=== PATIENT | female | born 1970 | race Caucasian/White ===

== ENCOUNTER → 2016-11-21 | Outpatient (CLI) | payer BC | END | disposition home or self-care (01) | LOC: EDBD → MW.CHIM 11-16 14:42 → MW.RT 08:24 | PROVIDERS: ATTEND Internal Medicine | DX: R07.9 Chest pain, unspecified (principal) | CPT/HCPCS: 93005 ==

== ENCOUNTER → 2016-11-28 | Outpatient (CLI) | payer BC ==
--- NOTE | 2016-11-29 13:03 | ECHO ---
EXAM DATE: 11/28/16 PATIENT'S AGE: 45 The echocardiogram report can be seen in this patient's EMR (Electronic Medical Record) in the Reports section. JUANA
== END ==
LOC: EDBD → MW.US 09:30
PROVIDERS: ATTEND Internal Medicine
DX: R07.9 Chest pain, unspecified (principal)
CPT/HCPCS: 93306

== ENCOUNTER → 2016-11-29 | Outpatient (CLI) | payer BC ==
--- NOTE | 2016-11-30 10:09 | MY ---
EXAMINATION: Bilateral digital mammography utilizing CAD. HISTORY: Screening exam. Comparison is made to previous studies dated 03/24/2015, 01/15/2012, 12/24/19 12. FINDINGS: Bilateral scattered fibroglandular densities. No suspicious calcifications, masses or architectural distortions. No pathologic appearing lymph nodes, no abnormal skin thickening or nipple inversion. CAD highlighted regions appear normal at this time. IMPRESSION: BI-RADS category I - negative mammogram. Continued screening according to ACR-ACS guidelines sugg estemariah. THE FALSE-NEGATIVE RATE OF MAMMOGRAM IS APPROXIMATELY 10%. MANAGEMENT OF A PALPABLE ABNORMALITY MUST BE BASED UPON CLINICAL GROUNDS. SENSITIVITY FOR DETECTION OF ABNORMALITIES IN DENSE BREASTS IS LOW. NOTE: A letter will be sent to the patient regarding findings. [facility] -- CAMILA Montes [phone] - FAX [phone]
== END ==
LOC: EDBD → MW.MAM 13:42
PROVIDERS: ATTEND Obstetrics & Gynecology
DX: Z12.31 Encounter for screening mammogram for malignant neoplasm of breast (principal)
CPT/HCPCS: G0202; G0202-26

== ENCOUNTER 2017-01-02 08:22 | Day surgery (SDC) | payer BC, SELFPAY ==
[~2017-01-02 08:22] MED LIST: Bupivacaine 0.25%/EPINEPHrine 1:200,000 10 ML SDV ONE; Lactated Ringers 1,000 ML IV SCH
[2017-01-02] MEDS ORDERED: Rocuronium 10 MG/ML 10 ML Syringe ONE ×2 (08:24→11:28)
[2017-01-02] MEDS ORDERED: Neostigmine Methylsulfate 1 MG/ML 5 ML Syringe ONE (08:24)
[2017-01-02] MEDS ORDERED: Lidocaine 2% 5 ML SDV ONE (08:24)
[2017-01-02] MEDS ORDERED: Ondansetron 4 MG/2 ML SDV ONE (08:24)
[2017-01-02] MEDS ORDERED: Propofol 200 MG/20 ML SDV ONE (08:25)
[2017-01-02] MEDS ORDERED: Midazolam 1 MG/ML 2 ML SDV ONE (08:25)
[2017-01-02] MEDS ORDERED: fentaNYL 250 MCG/5 ML SDV ONE (08:25)
[2017-01-02] MEDS ORDERED: fentaNYL 100 MCG/2 ML SDV IVPUSH PRN (08:28)
[2017-01-02] MEDS ORDERED: Acetaminophen/HYDROcodone 325-5 MG Tab PO PRN (09:00)
[2017-01-02] MEDS ORDERED: Clindamycin Phosphate in D5W 600 MG in Premix Bag 1 BAG IV ONE ×4 (09:00→11:30)
[2017-01-02] MEDS ORDERED: Bupivacaine 0.25%/EPINEPHrine 1:200,000 10 ML SDV INJECT ONE (09:00)
[2017-01-02] MEDS ORDERED: Oxymetazoline 0.05% Nasal Spray 15 ML Bottle ONE (09:19)
[2017-01-02] MEDS ORDERED: Scopolamine 1.5 MG Transdermal Patch TRDERM PRN (09:23)
--- NOTE | 2017-01-02 09:24 | PCM.PREANE ---
Preanesthetic Assessment - Anesthesia/Transfusion/Family Hx Anesthesia History: Prior Anesthesia Reaction Type of Anesthesia Reaction: Excessive Nausea/Vomiting Family History of Anesthesia Reaction: No Transfusion History: No Prior Transfusion(s) - Review of Systems General: No Symptoms Pulmonary: No Symptoms Cardiovascular: No Symptoms Gastrointestinal: No symptoms Neurological: No Symptoms Other: Reports: None - Physical Assessment NPO Status Date: 01/01/17 O2 Sat by Pulse Oximetry: 98 Respiratory Rate: 16 Vital Signs: Last Vital Signs Temp 36.6 C 01/02/17 08:27 Pulse 70 01/02/17 08:27 Resp 16 01/02/17 08:27 BP 133/73 01/02/17 08:27 Pulse Ox 98 01/02/17 08:27 Height: 1.65 m Weight: 68.039 kg ASA Class: 2 Mental Status: Alert & Oriented x3 Airway Class: Mallampati = 1 Dentition: Reports: Normal Dentition ROM/Head Extension: Full Lungs: Clear to auscultation, Normal respiratory effort Cardiovascular: Regular Rate, Regular Rhythm - Lab Values: Laboratory Last Values Urine HCG, Qual NEGATIVE (NEGATIVE) 01/02/17 08:22 - Allergies Allergies/Adverse Reactions: Allergies Allergy/AdvReac Type Severity Reaction Status Date / Time diclofenac [Diclofenac] Allergy Cannot Verified 02/16/14 15:09 Remember - Anesthesia Plan Pre-Op Medication Ordered: Other (transderm scop) - Acknowledgements Anesthesia Type Planned: General Anesthesia Pt an Appropriate Candidate for the Planned Anesthesia: Yes Alternatives and Risks of Anesthesia Discussed w Pt/Guardian: Yes Pt/Guardian Understands and Agrees with Anesthesia Plan: Yes PreAnesthesia Questionnaire Cardiovascular History: Reports: Heart Murmur Gastrointestinal History: Reports: Other (See Below) Other Gastrointestinal History: occasional heartburn Genitourinary History: Reports: UTI, Recurrent Neurological History: Reports: Migraines Endocrine/Metabolic History: Reports: None Oncologic (Cancer) History: Reports: Ovarian, Other (See Below) Other Oncologic History: states "did not need chemo" "got it all with hysterectomy" Dermatologic History: Reports: Eczema Other Dermatologic History: eczema to face - Past Surgical History Head Surgeries/Procedures: Reports: None Female Surgical History: Reports: Hysterectomy, Tubal Ligation Other Female Surgeries/Procedures: complete abd hysterectomy for ovarian cancer Musculoskeletal Surgical History: Reports: Arthroscopic Knee - SUBSTANCE USE Smoking Status *Q: Never Smoker Recreational Drug Use History: No - HOME MEDS Home Medications: Home Meds Aspirin [[place] Aspirin] 1 tab PO DAILY 12/31/16 [History] Estradiol [Vagifem] 1 tab VAG ASDIRECTED 12/31/16 [History] Multivitamin [Multivitamins] 1 tab PO DAILY 12/31/16 [History] Nitrofurantoin [place]/Macrocryst [Macrobid] 1 tab PO BID 12/31/16 [History] - CURRENT (IN HOUSE) MEDS Current Meds: Current Medications Hydrocodone Bitart/Acetaminophen ([place] 325-5 Mg) 1 tab PO Q4H PRN PRN Reason: Pain Fentanyl (Sublimaze) 50 mcg IVPUSH Q5M PRN PRN Reason: Pain (severe 7-10) Stop: 01/03/17 08:29 Lactated Ringer's (Ringers, Lactated) 1,000 mls @ 125 mls/hr IV ASDIRECTED FERCHO Last Admin: 01/02/17 08:32 Dose: 125 mls/hr Discontinued Medications Bupivacaine HCl/Epinephrine Bitart (Marcaine 0.25%/Epinephrine 1:200,000) 20 ml INJECT ONETIME ONE Stop: 01/02/17 09:01 Bupivacaine HCl/Epinephrine Bitart (Marcaine 0.25%/Epinephrine 1:200,000) Confirm Administered Dose 20 ml .ROUTE .STK-MED ONE Stop: 01/02/17 06:48 Fentanyl (Sublimaze) Confirm Administered Dose 250 mcg .ROUTE .STK-MED ONE Stop: 01/02/17 08:26 Glycopyrrolate () Confirm Administered Dose 1 mg .ROUTE .STK-MED ONE Stop: 01/02/17 08:25 Clindamycin Phosphate 600 mg/ (Premix) 50 mls @ 150 mls/hr IV ONETIME ONE Stop: 01/02/17 09:19 Lidocaine (Xylocaine-Mpf 2%) Confirm Administered Dose 5 ml .ROUTE .STK-MED ONE Stop: 01/02/17 08:25 Midazolam HCl (Versed 1 Mg/Ml) Confirm Administered Dose 2 mg .ROUTE .STK-MED ONE Stop: 01/02/17 08:26 Neostigmine Methylsulfate (Neostigmine) Confirm Administered Dose 5 mg .ROUTE .STK-MED ONE Stop: 01/02/17 08:25 Ondansetron HCl (Zofran) Confirm Administered Dose 4 mg .ROUTE .STK-MED ONE Stop: 01/02/17 08:25 Oxymetazoline HCl (Afrin Original 0.05% Nasal [place]) Confirm Administered Dose 15 ml .ROUTE .STK-MED ONE Stop: 01/02/17 09:20 Propofol (Diprivan 20 Ml) Confirm Administered Dose 200 mg .ROUTE .STK-MED ONE Stop: 01/02/17 08:26 Rocuronium [place] (Zemuron) Confirm Administered Dose 100 mg .ROUTE .STK-MED ONE Stop: 01/02/17 08:25
[2017-01-02] MEDS ORDERED: Scopolamine 1.5 MG Transdermal Patch ONE (09:35)
[2017-01-02] MEDS ORDERED: Succinylcholine/Normal Saline 200 MG/10 ML Syringe ONE (11:33)
[2017-01-02] MEDS ORDERED: ePHEDrine 50 MG/ML SDV ONE (11:50)
[2017-01-02] MEDS ORDERED: Phenylephrine/Normal Saline 100 MCG/ML 10 ML Syringe ONE (11:57)
[2017-01-02] MEDS ORDERED: Metoprolol Tartrate 5 MG/5 ML SDV ONE (12:52)
[2017-01-02] MEDS ORDERED: fentaNYL 100 MCG/2 ML SDV ONE ×2 (12:53→13:49)
[2017-01-02] MEDS ORDERED: Phenylephrine 1% 10 MG/ML SDV ONE (13:12)
--- NOTE | 2017-01-02 16:10 | PCM.POSTAN ---
POST ANESTHESIA ASSESSMENT - MENTAL STATUS Mental Status: alert, oriented - RESPIRATORY Respiratory Status: respiratory rate WNL, airway patent, O2 saturation stable - CARDIOVASCULAR CV Status: pulse rate WNL, blood pressure stable - GASTROINTESTINAL GI Status: no symptoms - PAIN Pain Score: 4 - POST OP HYDRATION Hydration Status: adequate & stable
--- NOTE | 2017-01-02 16:11 | PCM48HPAN ---
Post Anesthesia Note - EVALUATION WITHIN 48HRS OF ANESTHETIC Vital Signs in Normal Range: Yes Patient Participated in Evaluation: Yes Respiratory Function Stable: Yes Airway Patent: Yes Cardiovascular Function Stable: Yes Hydration Status Stable: Yes Pain Control Satisfactory: Yes Nausea and Vomiting Control Satisfactory: Yes Mental Status Recovered: Yes
[2017-01-02 16:44] VITALS: BP 120/76
--- NOTE | 2017-01-03 13:58 | PCM.OPNOTE ---
- General Post-Op/Procedure Note Date of Surgery/Procedure: 01/03/17 Operative Procedure(s): 1. Setoplasty - Insurance. 2. Turbinate Infracture - Insurance. 3. Rhinoplasty with automobile dealer grafts and cephalic trim - Cosmetic Pre Op Diagnosis: septal deviation with breathing obstruction, desire for rhinoplasty Post-Op Diagnosis: Same Anesthesia Technique: General LMA, Local Primary Surgeon: Suzanne Briscoe Patrol Mother: Mili Cheng Complications: None Condition: Good Free Text/Narrative:: [id number]
--- NOTE | 2017-01-03 18:06 | OR ---
SURGEON: CHAPIS LEÓN MD DATE OF PROCEDURE: 01/02/2017 PREOPERATIVE DIAGNOSES: 1. Septal deviation causing breathing obstruction and deviation of the nose. 2. Desire for cosmetic improvement of the tip of the nose. POSTOPERATIVE DIAGNOSES: 1. Septal deviation causing breathing obstruction and deviation of the nose. 2. Turbinate hypertrophy. 2. Desire for cosmetic improvement of the tip of the nose PROCEDURE: 1. Septoplasty for insurance coverage. 2. Infracture of inferior turbinate for insurance coverage. 3. Cosmetic rhinoplasty with obstetrics/gynecology nurse grafts and refinement of the nasal tip with cephalic trim and interdermal and transdermal sutures. WOUND/OSTOMY NURSE: SURI Gutierrez INDICATIONS: Ms. Hamm is a 46-year-old female with nasal septal deviation causing obstruction. She also has likely enlarged inferior turbinates. Risks and benefits of formal septorhinoplasty were discussed with her and she was in agreement to proceed. We did obtain prior authorization for the septoplasty with her insurance. She understands that the rhinoplasty portion of the procedure will be considered cosmetic. Risks and benefits of the procedure were discussed with her and she was in agreement to proceed. Risks were including, but not limited to, bleeding, infection, damage to underlying or overlying structures, possible need for future interventions and possible scarring. She understands that we will be conservative with our adjustment and we are looking for improvement and not a specific cosmetic outcome. PROCEDURE IN DETAIL: After informed consent was obtained and placed on the chart, the patient was brought to the operating theater and laid in supine position. After adequate general anesthetic was obtained, the area was prepped and draped and a time-out was completed to confirm side and site. Attention was then paid to infiltration of 0.25% Marcaine with epinephrine for local anesthesia. In addition, 4% cocaine was used for an entire 4 mL and placed on pledgets and placed intranasally. She has had Afrin injected into her nose prior to being brought back to the operating room as well. Attention was then paid to the septoplasty portion of the procedure. A small steff was made on the septal cartilage on the right side and dissection was carried through the mucosa above the cartilage. This was freed with significant areas of tethering. A small cut was made in the septum itself and then dissection was carried on the opposite side between the cartilage and the mucosa. This was easily freed on the left side. Once this was completed, attention was then paid to the swivel knife placement and the posterior portion of the septum was resected taking care to leave 1 cm strut dorsally and inferiorly for nasal support. Once this was completed, the cartilage was placed in saline for preservation of the obstetrics/gynecology nurse grafts. Attention was then paid to the cosmetic portion of the rhinoplasty. Dissection was carried through the skin and subcutaneous tissue through columellar incision. Dissection was carried directly onto the cartilage to expose the lower lateral cartilages, upper lateral cartilages, and the nasal bones. An intranasal supra cartilaginous incision was made and dissection was carried around this to free up all tethering structures. Once adequately freed, attention was then paid to separation of the upper lateral cartilages and the septum itself. This was done with sharp dissection and once freed attention was then paid to meticulous hemostasis. The area was copiously irrigated. Once adequately irrigated, attention was then paid to carving of the obstetrics/gynecology nurse graft. The cartilage had been allowed to sit in the saline for an extended period of time to allow it to obtain its normal curvature. Once adequately completed, attention was then paid to carving of this. This was thinned and appropriately contoured, so we could place two obstetrics/gynecology nurse grafts, one on each side of the septum between the septum and upper lateral cartilages. This was completed and this was sutured in place using 4-0 PDS sutures in a horizontal mattress fashion with the knots buried. Once this was completed, attention was then paid to refinement of the nasal tip. The lower lateral cartilages were trimmed in a cephalic trim taking care to leave 6 mm of cartilage in place for support of the alar rim. Once this was completed in a symmetric fashion, sutures were placed between the left and right dome up the cartilages were approximated in order to better refine the nasal tip. The left side slightly more than the right and the transdermal sutures were placed here in order to narrow this. Once good symmetry was appreciated and meticulous hemostasis had been obtained, the nasal skin was redraped and appeared to be somewhat bulky over the nasal tip persistently. A small amount of defatting was completed here. Meticulous hemostasis was obtained. The nose skin was redraped and then the skin was sutured in place using 6-0 Prolene stitches for the skin on the outside of the nose and 5-0 chromic stitches for the intranasal stitches. Attention was then paid to dural splint and dorsal nasal splint placement. The intranasal splints were lubricated with Bacitracin first and then sutured in place using a 4-0 Prolene stitch. Once adequately sutured in place, Steri- Strips and Mastisol were used to press the top of the nose and then the dorsal nasal splint was molded using heat. Once this was completed, this was Steri- Stripped in place and a nasal drip pad was placed. FOLLOWUP INSTRUCTIONS: The patient will see us in clinic in approximately 1 week or sooner with any problems, questions, or concerns. HEGGTJANELL / SAMANTHA /[id number] JUANA
== END 2017-01-02 16:52 | disposition home or self-care (01) ==
LOC: MW.SDS 08:22
PROVIDERS: ATTEND Plastic Surgery
DX: J34.2 Deviated nasal septum (principal); Z41.1 Encounter for cosmetic surgery; J34.3 Hypertrophy of nasal turbinates; E78.00 Pure hypercholesterolemia, unspecified; E78.5 Hyperlipidemia, unspecified; G43.909 Migraine, unspecified, not intractable, without status migrainosus; Z88.6 Allergy status to analgesic agent; Z79.82 Long term (current) use of aspirin; Z79.899 Other long term (current) drug therapy; Z98.51 Tubal ligation status; Z90.710 Acquired absence of both cervix and uterus; Z90.79 Acquired absence of other genital organ(s); Z98.890 Other specified postprocedural states; Z87.440 Personal history of urinary (tract) infections; Z85.43 Personal history of malignant neoplasm of ovary
CPT/HCPCS: 30400; 30520; 30930; 81025; A9270; J2250; J2370; J2405; J3010; J7120; 00160; J2704

== ENCOUNTER 2022-01-22 17:45 | Emergency (ER) | payer OTHER, BC ==
[2022-01-22] MEDS ORDERED: Sodium Chloride 0.9% 10 ML Syringe FLUSH PRN (18:07)
[2022-01-22] MEDS ORDERED: Sodium Chloride 0.9% 2.5 ML Syringe FLUSH PRN (18:07)
== END 2022-01-22 20:22 | disposition left against medical advice (07) ==
LOC: MW.ED 17:45
DX: Z53.21 Procedure and treatment not carried out due to patient leaving prior to being seen by health care provider (principal)

== ENCOUNTER 2022-02-13 15:59 | Emergency (ER) | payer OTHER, BC ==
[2022-02-13] MEDS ORDERED: Sodium Chloride 0.9% 1,000 ML IV ONE (16:51)
[2022-02-13] MEDS ORDERED: Ketorolac 30 MG/ML SDV IVPUSH ONE (16:51)
[2022-02-13] MEDS ORDERED: Ondansetron 4 MG/2 ML SDV IVPUSH ONE (16:51)
[2022-02-13 17:28] LABS: CARBON DIOXIDE,CO2 25.5 mmol/L (21.0-32.0); POTASSIUM,K 4.3 mmol/L (3.5-5.1)
[2022-02-13] MEDS ORDERED: Morphine 4 MG/ML VIAL IVPUSH ONE (18:25)
[2022-02-13 18:59] VITALS: BP 144/75; PULSE 75
== END 2022-02-13 18:58 | disposition home or self-care (01) ==
LOC: MW.ED 15:59
DX: N20.0 Calculus of kidney (principal); Z88.6 Allergy status to analgesic agent; Z90.710 Acquired absence of both cervix and uterus
CPT/HCPCS: 36415; 74176; 80053; 81001; 83690; 85025; 96361; 96374; 96375; 99284; J1885; J2270; J2405; J7030